=== PATIENT | female | born 1940 | race Caucasian/White ===

== ENCOUNTER → 2016-08-18 | Outpatient (CLI) | payer OTHER, MEDICARE ==
[~2016-08-18] MED LIST: ACET1TAB84 PO; ASPEC325 PO; ASPI325T47 PO; CHOL100010 PO; CLCC1250 PO; EZET10TA63 PO; GABA-113 PO; LEVO75TA PO; METO50TA7 PO; MULT-506 PO; NIAC750T2 PO; NXM/40 PO; ZNTT/150 PO
[2016-08-18 17:36] LABS: BLOOD UREA NITROGEN 20 mg/dl (7-18); BUN/CREATININE RATIO 19.6 (10-20); CALCIUM 8.6 mg/dl (8.5-10.1); CARBON DIOXIDE 26 mmol/L (21-32); CHLORIDE 110 mmol/L (98-107); GLUCOSE 106 mg/dl (70-99); POTASSIUM 3.7 mmol/L (3.5-5.1); SODIUM 144 mmol/L (136-145)
== END | disposition home or self-care (01) ==
LOC: C.LABBC 12:57
PROVIDERS: ATTEND Internal Medicine Geriatric Medicine
DX: E03.9 Hypothyroidism, unspecified (principal); I25.10 Atherosclerotic heart disease of native coronary artery without angina pectoris; M81.0 Age-related osteoporosis without current pathological fracture; E78.5 Hyperlipidemia, unspecified; I10 Essential (primary) hypertension; E55.9 Vitamin D deficiency, unspecified; M54.16 Radiculopathy, lumbar region; R73.9 Hyperglycemia, unspecified

== ENCOUNTER → 2016-09-27 | Outpatient (CLI) | payer OTHER, MEDICARE ==
[2016-09-27 14:43] LABS: URINE APPEARANCE CLEAR (CLEAR); URINE BILIRUBIN NEG (NEG); URINE COLOR YELLOW; URINE NITRITE NEG (NEG); URINE SPECIFIC GRAVITY 1.007 (1.000-1.030); UROBILINOGEN NEG (NEG)
[2016-09-27 14:45] LABS: MANUAL MICROSCOPIC REQUIRED? NO; REVIEW REQ? NO
== END | disposition home or self-care (01) ==
LOC: C.LABBC 10:05
PROVIDERS: ATTEND Internal Medicine Geriatric Medicine
DX: R39.9 Unspecified symptoms and signs involving the genitourinary system (principal)

== ENCOUNTER → 2016-11-09 | Outpatient (CLI) | payer OTHER, MEDICARE ==
[2016-11-09 15:03] LABS: URINE APPEARANCE CLEAR (CLEAR); URINE BILIRUBIN NEG (NEG); URINE COLOR YELLOW; URINE EPITHELIAL CELL AUTO 20-30 /lpf (0-5); URINE NITRITE NEG (NEG); URINE SPECIFIC GRAVITY 1.016 (1.000-1.030); UROBILINOGEN NEG (NEG)
[2016-11-09 15:35] LABS: MANUAL MICROSCOPIC REQUIRED? NO; REVIEW REQ? NO
== END | disposition home or self-care (01) ==
LOC: C.LABBC 10:30
PROVIDERS: ATTEND Internal Medicine Geriatric Medicine
DX: R39.9 Unspecified symptoms and signs involving the genitourinary system (principal)

== ENCOUNTER → 2016-12-07 | Outpatient (CLI) | payer OTHER, MEDICARE ==
[~2016-12-07] MED LIST changes: -ASPEC325 PO
[2016-12-07 17:16] LABS: BLOOD UREA NITROGEN 24 mg/dl (7-18); BUN/CREATININE RATIO 19.7 (10-20)
== END | disposition home or self-care (01) ==
LOC: C.LABBC 12:12
PROVIDERS: ATTEND Nurse Practitioner Family
DX: R31.9 Hematuria, unspecified (principal)

== ENCOUNTER → 2016-12-08 | Outpatient (CLI) | payer OTHER, MEDICARE ==
[~2016-12-08] MED LIST changes: +OPTIRAY 320 IV PRN
--- NOTE | 2016-12-08 13:11 | DIAGNOSTIC IMAGING REPORT ---
ABDOMEN AND PELVIS CT WITH AND WITHOUT IV CONTRAST, UROGRAM PROTOCOL CT DOSE: 1637.68 mGycm HISTORY: Hematuria. TECHNIQUE: Multiaxial CT images of the abdomen and pelvis were performed both before and after the use of intravenous contrast to evaluate the urinary system. Maximal intensity projection images were performed at the workstation by the radiologist. COMPARISON STUDY: None. FINDINGS: No renal or ureteral calculi. No hydronephrosis. No suspicious filling defects seen within the bilateral renal collecting systems, ureters, or bladder. A 9 mm hypodense lesion within the upper pole the right kidney. This is too small to characterize but favors a cyst. The left kidney enhances normally. Partially visualized large hiatus hernia. The liver, spleen, adrenal glands, and pancreas are within normal limits. The gallbladder is mildly distended. No retroperitoneal lymphadenopathy. The uterus and bilateral adnexa are unremarkable. Colonic diverticulosis. No bowel wall thickening or obstruction. The visualized appendix appears unremarkable. IMPRESSION: 1. No renal or ureteral stones. No hydronephrosis. 2. No suspicious filling defects seen within the opacified bilateral renal collecting systems, ureters, or bladder. 3. Large hiatus hernia. 4. Colonic diverticulosis. 5. Mild gallbladder distention. No gallbladder wall thickening. Electronically signed by: Jono Moreno M.D. 12/08/2016 1:10 PM Dictated Date/Time: 12/08/2016 1:01 PM
== END | disposition home or self-care (01) ==
LOC: C.CTS 12:28
PROVIDERS: ATTEND Nurse Practitioner Family
DX: R31.9 Hematuria, unspecified (principal)

== ENCOUNTER → 2017-01-17 | Outpatient (CLI) | payer OTHER, MEDICARE ==
[~2017-01-17] MED LIST changes: -OPTIRAY 320 IV PRN
--- NOTE | 2017-01-17 15:18 | MAMMOGRAPHY REPORT ---
BILATERAL DIGITAL SCREENING MAMMOGRAM WITH CAD: 01/17/2017 CLINICAL HISTORY: Routine screening. Patient has no complaints. TECHNIQUE: Bilateral CC, MLO and repeat MLO views were obtained. Current study was also evaluated w ith a Computer Aided Detection (CAD) system. COMPARISON: Comparison is made to exams dated: 01/15/2016 mammogram, 01/13/2015 mammogram, 01/09/2014 m ammogram, 01/08/2013 mammogram, 01/06/2012 mammogram, and 12/29/2010 mammogram - [facility] enter. BREAST COMPOSITION: There are scattered areas of fibroglandular density in both breasts. FINDINGS: There are scattered benign-appearing microcalcifications in the breasts. No suspicious mas s, architectural distortion or cluster of suspicious microcalcifications is seen. IMPRESSION: ACR BI-RADS CATEGORY 1: NEGATIVE There is no mammographic evidence of malignancy. A 1 year screening mammogram is recommended. The pa tient will receive written notification of the results. Approximately 10% of breast cancers are not detected with mammography. A negative mammographic report should not delay biopsy if a clinically suggestive mass is present. Kaitlynn Taylor M.D. ay/:01/17/2017 13:34:29 Admissions Director: Avril VERNON([place])([place])([place]), [facility] letter sent: Normal 1/2 BI-RADS Code: ACR BI-RADS Category 1: Negative
== END | disposition home or self-care (01) ==
LOC: C.MAMM 10:25
PROVIDERS: ATTEND Internal Medicine Geriatric Medicine
DX: Z12.31 Encounter for screening mammogram for malignant neoplasm of breast (principal)

== ENCOUNTER → 2017-03-02 | Outpatient (CLI) | payer OTHER, MEDICARE ==
[2017-03-02 13:54] LABS: BLOOD UREA NITROGEN 23 mg/dl (7-18); BUN/CREATININE RATIO 24.2 (10-20); CALCIUM 9.2 mg/dl (8.5-10.1); CARBON DIOXIDE 30 mmol/L (21-32); CHLORIDE 109 mmol/L (98-107); CREATININE 0.95 mg/dl (0.60-1.20); GLUCOSE 89 mg/dl (70-99); SODIUM 143 mmol/L (136-145)
[2017-03-02 14:05] LABS: CHOLESTEROL 146 mg/dl (0-200); CHOLESTEROL/HDL RATIO 2.1; ESTIMATED AVERAGE GLUCOSE 117 mg/dl; HA1C FLAG Normal (Normal); HDL CHOLESTEROL 69 mg/dl; LDL CHOLESTEROL CALCULATED 56 mg/dl; TRIGLYCERIDES 104 mg/dl (0-150); VERY LOW DENSITY LIPOPROT CALC 21 mg/dl
== END | disposition home or self-care (01) ==
LOC: C.LABBC 11:26
PROVIDERS: ATTEND Internal Medicine Geriatric Medicine
DX: E03.9 Hypothyroidism, unspecified (principal); E78.5 Hyperlipidemia, unspecified; R73.9 Hyperglycemia, unspecified; I10 Essential (primary) hypertension

== ENCOUNTER → 2017-09-21 | Outpatient (CLI) | payer OTHER, MEDICARE ==
[~2017-09-21] MED LIST changes: -METO50TA7 PO; +METO50TA8 PO; +RANI150T85 PO; -ZNTT/150 PO
[2017-09-21 16:56] LABS: BLOOD UREA NITROGEN 23 mg/dl (7-18); CREATININE 1.05 mg/dl (0.60-1.20); GLUCOSE 81 mg/dl (70-99); SODIUM 142 mmol/L (136-145)
[2017-09-21 16:57] LABS: CARBON DIOXIDE 28 mmol/L (21-32)
== END | disposition home or self-care (01) ==
LOC: C.LABBC 13:17
PROVIDERS: ATTEND Internal Medicine Geriatric Medicine
DX: E03.9 Hypothyroidism, unspecified (principal); I10 Essential (primary) hypertension; R73.9 Hyperglycemia, unspecified

== ENCOUNTER 2017-11-19 21:23 | Emergency (ER) | payer OTHER, MEDICARE ==
[~2017-11-19] VITALS: Ht 149.9 cm; Wt 81.6 kg
[~2017-11-19 21:23] MED LIST changes: -ASPI325T47 PO; +ASPI81TA28 PO; +CLOP1TAB15 PO; +METO25TA3 PO; -METO50TA8 PO
[2017-11-19 21:33] VITALS: TEMP 36.8; Ht 149.9 cm; Wt 81.6 kg
[2017-11-19] MEDS ORDERED: OXYMETAZOLINE HCL 0.05% NA SPR 15 ML BTL ONE (21:40)
[2017-11-19] MEDS ORDERED: METO50TA8 PO (22:18)
[2017-11-19] MEDS ORDERED: CHOL1000 PO (22:18)
[2017-11-19] MEDS ORDERED: TRANEXAMIC ACID INJ 1,000 MG in SODIUM CHLORIDE 0.9% 100ML 100 ML TOP STA (22:52)
[2017-11-19] MEDS ORDERED: TRANEXAMIC ACID TOP STA ×2 (23:06)
[2017-11-19] MEDS ORDERED: STERILE FOR TOP STA ×2 (23:06)
[2017-11-19] MEDS ORDERED: WATER TOP STA ×2 (23:06)
[2017-11-20 01:36] VITALS: BP 183/74; PULSE 64; O2SAT 98
--- NOTE | 2017-11-20 01:50 | EMERGENCY ROOM VISIT NOTE ---
History First contact with patient: 22:03 Chief Complaint: NOSE BLEED (MINOR) Stated Complaint: NOSE BLEED History of Present Illness The patient is a 77 year old female who presents to the Emergency Room with complaints of Nosebleed that happened earlier today and again tonight. Patient states many years ago she had the nose cauterized. No problems since. 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 Patient denies trauma to her nose instrumentation or recent illness. Patient denies chest pain, dyspnea, lightheadedness, dizziness , unexplained new bruising. Patient states she feels quite anxious. Review of Systems An 10 system review of systems was completed with positives and pertinent negatives listed in the HPI. Past Medical/Surgical History CAD, CABG, hypothyroidism, GERD, hypertension Social History Smoking Status: Never Smoker Smokeless Tobacco Use: No Alcohol Use: none Drug Use: none Marital Status: Housing Status: lives with family Current/Historical Medications Scheduled Aspirin (Aspirin Ec), 81 MG PO DAILY Cholecalciferol (Vitamin D3), 2,000 UNITS PO DAILY Clopidogrel (Plavix), 75 MG PO DAILY Esomeprazole Magnesium (Nexium), 40 MG PO QAM Ezetimibe (Zetia), 10 MG PO QPM Levothyroxine Sodium (Synthroid), 75 MCG PO QAM Metoprolol Succ (Toprol Xl) (Toprol-Xl), 50 MG PO BID Multivitamin (Multivitamin), 1 TAB PO QAM Niacin Ext Rel (Niaspan Ext Rel), 750 MG PO QPM Ranitidine (Zantac), 150 MG PO HS Scheduled PRN Acetaminophen (Tylenol Arthritis Ext Rel), 650 MG PO Q8H PRN for Pain Physical Exam Vital Signs Date Time Temp Pulse Resp B/P (MAP) Pulse Ox O2 Delivery O2 Flow Rate FiO2 11/20/17 01:04 181/63 11/20/17 00:11 64 18 180/98 97 Room Air 11/19/17 22:20 68 16 173/89 96 Room Air 11/19/17 21:33 36.8 75 18 206/77 95 Room Air Physical Exam VITALS: Vitals are noted on the nurse's note and reviewed by myself. Vital signs hypertensive. GENERAL: Anxious appearing female, in no acute distress, nondiaphoretic, well- developed well-nourished. SKIN: The skin was without rashes, erythema, edema, or bruising. There is no tenting of the skin. Capillary reflex less than 2 seconds. HEAD: Normocephalic atraumatic. EARS: External auditory canals clear, tympanic membranes pearly fu without erythema or effusion bilaterally. EYES: Pupils equal round and reactive to light and accommodation. Conjunctivae without injection, sclerae without icterus. Extraocular movements intact. NOSE: Patent, turbinates without inflammation, right nare with active bleeding No sinus tenderness. MOUTH: Mucous membranes moist. Pharynx without erythema or exudate. Uvula midline. Airway patent. Tongue does not deviate. NECK: Supple without nuchal rigidity. No lymphadenopathy. No thyromegaly. Cervical spine is nontender. No JVD. HEART: Regular rate and rhythm LUNGS: Clear to auscultation bilaterally without wheezes, rales or rhonchi. No retractions or accessory muscle use. ABDOMEN: Positive bowel sounds x 4. Normal tympanic percussion. Soft, nontender, without masses or organomegaly. Singh sign negative. No guarding or rebound tenderness. MUSCULOSKELETAL: No muscle atrophy, erythema, or edema noted. NEURO: Patient was alert and oriented to person place and time. Normal sensation to light and sharp touch. No focal neurological deficits. Medical Decision & Procedures Medications Administered Medications (Trade) Dose Ordered Sig/Kyle Route Start Time Stop Time Status Last Admin Dose Admin Oxymetazoline HCl (Afrin 0.05% Nasal [place]) 75 sprays STK-MED ONCE .ROUTE 11/19/17 21:40 11/19/17 21:41 DC 11/19/17 21:40 2 SPRAYS Procedure Anterior Nasal Packing Indication: Epistaxis Verbal consent obtained. Risks and benefits were explained with the usual customary discussion. A time out was taken. Clots were removed with suction. The right naris was prepped with Afrin and lidocaine. A 4 x 4 soaked with TXA was placed in the right nare. Patient was observed for 20 minutes and the packing was removed. The patient tolerated this well. Hemostasis was achieved. No complications. Patient was observed for another hour with no rebleeding. ED Course Prior records/ancillary studies reviewed. Triage Nursing notes reviewed. Additional history obtained from family The patient's history was concerning for epistaxis. Differential diagnosis: Etiologies such as anterior epistaxis, coagulopathy, traumatic injury, fracture , septal hematoma, posterior epistaxis as well as other pathologies were entertained. Physical examination findings: As above. Anterior bleeding source. ER treatment provided: Direct pressure Intranasal phenylephrine TXA as above for epistaxis On reassessment the patient felt better. Diagnostics interpreted by me: Deferred This appears to be consistent with anterior epistaxis. Patient was medicated as above and epistaxis resolved. Patient was quite anxious. She is advised to monitor her blood pressure. She states her blood pressure normally is 120/80. Patient was advised to follow-up with ENT in a few days here in the ER sooner for epistaxis, high blood pressure, chest pain, difficulty breathing, weakness, worsening signs or symptoms or as needed. Patient was neurovascularly neurologically intact. She is well-appearing. She is observed for over an hour after treatment with TXA with no rebleeding. By the evaluation outlined above emergent etiologies such as coagulopathy, traumatic injury, fracture, septal hematoma, posterior epistaxis, as well as others were deemed relatively unlikely. The pt informed about the findings as listed above. All questions were answered and pleased with the treatment. Return instructions were outlined and the patient was discharged in stable condition. Referral: The patient was referred to ENT and PCP for a recheck of the current condition. Case reviewed with my attending The chart was completed utilizing Face to Face Live Speech voice recognition software. Grammatical errors, random word insertions, pronoun errors, and incomplete sentences are an occassional consequence of this system due to software limitations, ambient noise, and hardware issues. Any formal questions or concerns about the content, text, or information contained within the body of this dictation should be directly addressed to the physician case management assistant for clarification. Medical Decision As above Medication Reconcilliation Current Medication List: was personally reviewed by me Blood Pressure Screening Patient's blood pressure: Elevated blood pressure Blood pressure disposition: Referred to PCP Impression Primary Impression: Anterior epistaxis Additional Impression: Elevated blood pressure reading Departure Information Dispostion Home / Self-Care Condition GOOD Referrals Britt Toro M.D. Forms WORK / SCHOOL INSTRUCTIONS, HOME CARE DOCUMENTATION FORM, IMPORTANT VISIT INFORMATION Patient Instructions Nosebleeds - [facility], [facility] Additional Instructions Monitor your blood pressure, it was high today. Avoid scratching, rubbing, picking, or blowing your nose. The sulfate drier machine operator your nasal passages the more likely they are to bleed. The following two products are available [id number] at most drug stores/pharmacies. [place] nasal spray or similar generic saline spray to keep the nose moist 3 to 4 times a day. If bleeding recurs apply direct pressure for an uninterrupted 20 minutes. On and off pressure is much less effective because it will disturb the clots that are forming. If the bleeding is still a problem after 20 minutes or is so heavy despite the pressure return to the emergency department. Continue current medications. For ENT([id number]) follow up call Dr. Albrecht office at [phone] for an appointment this week. Tell the nursing secretary you were referred from the ER. Follow-up with your primary care physician in 2 to 3 days for a recheck of your current condition. Problem Qualifiers
== END 2017-11-20 01:37 | disposition home or self-care (01) ==
LOC: C.EDB 21:24 → C.EDC 11-20 01:37
DX: R04.0 Epistaxis (principal); I10 Essential (primary) hypertension; E03.9 Hypothyroidism, unspecified; I25.10 Atherosclerotic heart disease of native coronary artery without angina pectoris; Z79.02 Long term (current) use of antithrombotics/antiplatelets; Z79.82 Long term (current) use of aspirin; Z79.899 Other long term (current) drug therapy; Z95.1 Presence of aortocoronary bypass graft